=== PATIENT | female | born 1970 | race Caucasian/White ===

== ENCOUNTER → 2022-01-19 | Outpatient (CLI) | payer OTHER | END | disposition home or self-care (01) | LOC: LABPAT 08:44 | PROVIDERS: ATTEND Orthopaedic Surgery | DX: Z01.812 Encounter for preprocedural laboratory examination (principal); Z22.322 Carrier or suspected carrier of Methicillin resistant Staphylococcus aureus; M47.812 Spondylosis without myelopathy or radiculopathy, cervical region; M48.02 Spinal stenosis, cervical region | CPT/HCPCS: 87070 ==

== ENCOUNTER 2022-01-30 06:00 | Observation (INO) | payer OTHER ==
[2022-01-24 18:07] VITALS: BMI 40.7
[~2022-01-30 06:00] MED LIST: ACETAMINOPHEN TAB 500 MG TAB PO PRN; GABAPENTIN 300 MG CAP PO PRN; ONDANSETRON 4 MG/2 ML VIAL IVP PRN; TRANEXAMIC ACID IN NACL,ISO-OS 1,000 MG in SALINE 1 100ML.BAG IVPB PRN
[2022-01-30] MEDS ORDERED: LIDOCAINE 1% (10MG/ML) FOR IV START INTRADERMA PRN (06:14)
[2022-01-30] MEDS: LACTATED RINGERS 1,000 ML IV SCH (06:22)
[2022-01-30] MEDS ORDERED: LACTATED RINGERS 1,000 ML IV ONE ×3 (06:22→11:05)
--- NOTE | 2022-01-30 06:33 | P.HPOR ---
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 Location posterior diffuse Activity Modification Yes, she has attempted lifestyle and activity modifications w/o relief Hand Dominance right DOI: 03/2021 DOS: None TREATMENTS COMPLETED: 6 weeks of PT completed? Date of last PT: 11/2021 Yes (completed 1 month ago) How many sessions? 16 Did it help? No Physician directed home exercise completed? yes (daily), without improvements. Medications yes List: Robaxin without relief, NSAIDs (motrin, Aleve) no help; Medrol dolores (mild relief, transient); Gabapentin made her "loopy" Alternative interventions Chiropractic: yes , without improvements. Massage therapy: No Brace: No Pt has participated in cervical traction w/o relief Pt has participated in Expressive CBT writing program w/o relief Injections No RFA: No SUBJECTIVE: Patient returns to the office for a pre-operative review of the planned C4-C6 ACDF. Since the time of the last appointment the patient reports that she has seen no changes to her symptoms. Furthermore she denies any improvements with all conservative modalities trialed thus far and is ready to proceed with the planned procedure. Patient notes that she has seen that her symptoms are continuing to give her significant issues and she is unable to complete many daily activities due to this. Otherwise the patient continues to deny any bladder or bowel retention/incontinence, no perineal numbness/tingling, and ambulates independently. HPI: Patient last returned to the office on 12/21/2021 for a recheck of her cervical spine. Since the time of the last appointment the patient reports that she has seen no improvements to her symptoms. She did complete her course of PT in 11/2021 , not finding any relief with this. Additionally she has continued with the physician recommended HEP daily without relief as well. Overall she denies any lasting improvements from the conservative modalities trialed thus far. Patient notes continued cervical pain radiating through the C5-C6 distribution on the right upper extremity. This is continuing to impede with her daily functions and she has great difficulty completing tasks due to this. Patient does also report sleep disturbances. She feels that she is ready to proceed with discussing operative intervention. Patient continues to deny any bladder or bowel retention/incontinence, no perineal numbness/tingling, and ambulates independently. Ms. Perea last presented to the office on 10/28/2020 for an evaluation of her cervical spine. Patient reports her symptoms were onset following a FFS in 03/2021 after a syncopal episode. She denies having any acute injury immediately following this event but does report having increasing cervical pain since. Regarding her symptoms, she describes her pain as an aching and burning that becomes sharp with any flexion or twisting of the neck. In addition to the cervical pain she does report having diffuse numbness/tingling into the right upper extremity and hand. Overall, similarly to her cervical symptoms, her radiculopathic symptomology is exacerbated with movement and weightlifting. Due to this she does have sleep disturbances as well as an increasing loss in daily functionality. As for treatment, the patient reports having trialed PT and a physician recommended home exercise program for greater than 3 months with no improvements. Additionally, she does take Robaxin without any relief. Lastly, she has found no improvements with doing chiropractics. Overall she denies any notable improvements to her progressive symptoms with conservative modalities. Otherwise she denies any bladder or bowel retention/incontinence, no perineal numbness/tingling, and ambulates independently. The patients' past social, medical, family, surgical history, as well as review of systems, have been reviewed. Please refer to the Neurosurgery History and Physical form that has been scanned in to our electronic medical record system. 14 points review of systems completed and as stated in HPI, all other systems reviewed are negative. Social History: Reviewed, see appropriate section of the chart for details. P3 Social History: Smoking: never a smoker P3 Alcohol: occasional alcohol P3 Family History: Reviewed, see appropriate section of the chart for details. P2 Past Medical History: Reviewed, see appropriate section of the chart for details. [id number] Medications: Rx: cetirizine 10 mg tablet Ref: 0 Rx: famotidine 20 mg tablet Ref: 0 Rx: hydroCHLOROthiazide 12.5 mg tablet Ref: 0 Rx: Jardiance 25 mg tablet Ref: 0 Rx: Robaxin Ref: 0 PHYSICAL EXAMINATION: General: Awake, alert, appropriate for age, in no acute distress. HEENT: No unusual neck masses around region of lateral neck triangle, thyroid, supraclavicular groove Heart: Regular rate and rhythm, normal S1, S2 and no murmur/gallop. Lungs: Clear to auscultation bilaterally with no use of accessory muscles. Extremities: Skin warm and dry without acute lesions, coloration, temperature, skin intact, no tenderness or erythema Integument: Hairy patches: Absent Dorsal skin dimples: Absent Cafe au lait spots: Absent Surgical incisions: No Palpation: Please see Pain drawing on Intake sheet for further detail. Midline spinal tenderness: Yes, C5-C6 Paralumbar tenderness: No E6 Parathoracic tenderness: No E6 Buttocks tenderness: No E6 Special findings: No POSTURAL and MUSCULO-SKELETAL EVALUATION: Coronal Balance: NEUTRAL Recumbent testing: Patient is able to lay flat on back Sagittal Balance: NEUTRAL Shoulder Profile: LEVEL Pelvic Girdle: LEVEL Neck ROM: RESTRICTED WITH PAIN Lumbar ROM: UNRESTRICTED Shoulder ROM: Symmetrical Hip ROM: Symmetrical Knee ROM: Symmetrical Hands: Normal appearance, symmetrical Feet: Normal appearance, Symmetrical VASCULAR STATUS : LEFT RIGHT Wrist Pulses INTACT INTACT Pedal Pulses (Dors. pedis & post.tibialis) INTACT INTACT Color NORMAL NORMAL Edema Absent Absent NEUROLOGIC EXAMINATION: Mental Status:Awake and alert, fully oriented, with normal attention, concentration and memory, and fluent, appropriate speech. Cranial Nerves: I: Olfactory not tested. II: Visual acuity normal, no visual field deficit noted with confrontation. III,IV: Normal pupillary reflexes & intact extraocular movements without nystagmus. V,: Intact symmetrical facial sensation. VII: Intact symmetrical facial motor movement VIII: Hearing intact. IX,X: Intact gag, swallow, & normal voice. XI: Sternocleidomastoid, trapezius function intact. XII: Tongue midline with normal movements. L'hermitte's Sign: Negative / absent Spurling'Sign: Absent bilaterally. Cubital percussion test: Absent bilaterally. Palmer-Tinel sign - Carpal region: Absent bilaterally. Straight Leg Raising: Absent bilaterally. Crossed straight leg raise: negative O8 MOTOR EXAM (0-5/5, N/T) STRENGTH RIGHT LEFT Shoulder Abd (not part of the ELIZABETH score) 5 5 Elbow Flexors 4+ 5 Elbow Extensor 5 5 Wrist Dorsiflexors 4 5 Finger Abductor 5 5 Architectural Superintendent 4 4+ Hip Flexor (Not part of ELIZABETH Motor score) 5 5 Knee Flexor 5 5 Knee Extensor 5 5 Ankle dorsiflexor 5 5 Ankle plantarflexion 5 5 Extensor hallucis 5 5 REFLEXES(0-4/2, NT) RIGHT LEFT Upper Extremities 2 2 Lower Extremities 2 2 Pathological Reflexes RIGHT LEFT Palmer's Present Present Clonus Absent Absent Babinski Absent Absent # Indicates mechanical impairment Muscle appearance: Symmetrical, without signs of atrophy or dystrophy. Sensory system (0-4, N/T) Test type RU GIOVANNY RL LL Joint-Position 2 2 2 2 Vibration 2 2 2 2 Pain & LT sense 2 2 2 2 Dermatomal Deficit: C5-C6 C6 None None Gait and Functional Evaluation: Ambulatory aids: Independent Romberg's test: Intact bilaterally Toe heel walk / heel-toe walk intact while maintaining satisfactory balance? yes Squatting/straightening w/o assistance to a min of 60 degree knee flexion? yes Single leg stance: intact Trendelenburg sign negative bilaterally Hand and finger dexterity intact bilaterally? No, worse on the right side Disdiadochokinesis examination negative bilaterally? yes RADIOGRAPHIC STUDIES: XRay taken on 10/28/21 of Cervical Spine: This is reviewed in office this demonstrates overall well-maintained alignment. There is spondylosis noted C5-C6 disc degeneration and collapse this anterior osteophytic changes. There is facet arthrosis as well noted. No other fracture noted simple cervical C1 2 joints appear stable. MRI scan from08/27/2021 of Cervical Spine: this is reviewed and demonstrates multilevel spondylotic changes with severe disc desiccation height loss as well as kyphotic deformity centered around C4 5 and C5 6.there are disc herniations at these levels as well causing moderate to severe stenosis at C5-C6 and moderate stenosis at C4-C5 there appears to be beginning changes of myelomalacia at C5-C6 with cord signal uptake at C5-C6. There is reversal of the normal cervical lordosis secondary to these levels. Occipital cervical and C1 2 joints appear stable. There are no other lesions or fractures noted. IMPRESSION AND PLAN: It was my pleasure to have seen and examined Amalia. I reviewed the patient's clinical syndrome, physical findings, and imaging studies during the appointment today. It is my impression that the patient has a diagnosis of. 1. C4 to C6 spondylosis with stenosis, moderate to severe 2. myelomalacia C5-C6 3. right upper extremity radiculopathy 4. Right upper extremity weakness .DX:Diagnosis: Cervical spondylosis : ICD10 = M47.812 / ICD9 = 721.0 / SNOMED = 682528276 .DX:Diagnosis: Myelomalacia : ICD10 = G95.89 / ICD9 = 336.8 / SNOMED = 35744219 .DX:Diagnosis: Weakness of arm : ICD10 = G83.20 / ICD9 = 344.40 / SNOMED = 866523381 I outlined the natural course history without intervention and various interventional options. Based on my findings I suggest the following course of action: 1. I discussed treatment options with the patient, including operative and non- operative options, and they have elected to proceed with the following surgical procedure: C4-C6 ACDF (31818, [id number], [id number], [id number]) The indications, risks, benefits, and alternatives to surgery were discussed w ith the patient at length. Specifically (but not limited to) the risks of infection, stiffness, recurrence of symptoms, need for revision surgery, local numbness, neurovascular injury, and blood clots were discussed. The patient's questions were answered. The decision to proceed was made. Consent will be obtained for the procedure. 2. Spine Surgery Risk Review Amalia Perea is presenting for evaluation of cervical. It was my pleasure to have seen and examined Amalia Perea. In our visit today we have had a chance to go over subjective complaints, physical examination findings and treatments including the natural course history without intervention and various interventional options. The patients imaging demonstrates XRay taken on 10/28/21 of Cervical Spine:This is reviewed in office this demonstrates overall well-maintained alignment. There is spondylosis noted C5-C6 disc degeneration and collapse this anterior osteophytic changes. There is facet arthrosis as well noted. No other fracture noted simple cervical C1 2 joints appear stable. MRI scan from08/27/2021 of Lumbar Spine:this is reviewed and demonstrates multilevel spondylotic changes with severe disc desiccation height loss as well as kyphotic deformity centered around C4 5 and C5 6.there are disc herniations at these levels as well causing moderate to severe stenosis at C5-C6 and moderate stenosis at C4-C5 there appears to be beginning changes of myelomalacia at C5-C6 with cord signal uptake at C5-C6. There is reversal of the normal cervical lordosis secondary to these levels. Occipital cervical and C1 2 joints appear stable. There are no other lesions or fractures noted. On physical exam, Amalia Perea demonstrates significantly restricted cervical ROM with bilateral upper extremity radiculopathy and weakness. Patient does also have C5-C6 dermatomal deficits on the right upper extremity and C6 on the left side. I have explained to the patient that as their condition progresses it will cause further neurological deficits and eventual paralysis. Based on the patients imaging, physical exam, and the rapid progression and disabling nature of their symptoms, at this time I recommend surgery in the form or a: C4-C6 ACDF. I discussed the risk and benefits of this procedure at length with Amalia Perea. The patient agreed to considered pursuing the procedure abovementioned. Prior to surgery, she should follow up with her PCP (Cardio, ID, IM etc) for clearance. Questions were invited and answered, and the patient wishes to proceed as outlined below. Currently, I am recommendin. C4-C6 ACDF 2.Follow up with PCP for surgical clearance 3.Review of surgical risks and benefits as well as an educational packet on the proposed surgical procedure. Risks: All surgical procedures come with inherent risks, including those related to positioning, anesthesia, intraoperative findings, and postoperative complications. It is important to understand that surgery does not come with any guarantee of a successful outcome as complications and adverse events are always possible. The patient was given a handout in office today discussing the surgical procedure and risks associated with the intervention, both of which were discussed with the patient. These risks include but are not limited to the following: * Experiencing same, different or even worse symptoms in back, neck, arms, or legs compared to before surgery. Requiring further surgery or other forms of treatment presently or at some time in the future at same or other levels of the intended spine surgery. On an extreme but fortunately relatively rare basis severe complication such as blindness, stroke, heart attack, temporary and/or permanent nerve injury, paralysis, coma, or may occur, sometimes without known explanation. Surgical complications may include but are not limited to risk of infection, fluid accumulation in the surgical dissection site, including a seroma or hematoma, that requires additional surgery, wound drainage, bleeding, new numbness or weakness, vision changes/loss, spinal fluid leakage, non-healing and/or infected incision, headaches, difficulty or inability to swallow, hoarseness, hemopneumothorax, pneumothorax, impotence, retrograde ejaculation, vaginal dryness; injury to nerves, spinal cord, blood vessels, lymphatics or other vital organs (i.e., bowel injury, injury to the great vessels); heterotopic bone formation; complications related to the hardware such as screws, rods, cages including misplaced hardware, device failure, instrumentation at the wrong spine level, hardware fracture/breakage, or hardware loosening; vertebral failure of the spinal column above or below the newly placed hardware; retained surgical instrumentations or devices and the need for further surgery. * Medical risks of the planned spine surgery include but are not limited to generalized Infections to the whole body or local areas outside of the surgical site (sepsis), heart attack, bleeding, anaphylaxis, meningitis, seizure, epilepsy, hearing loss, burn barrientos, laceration of the head or other areas of the body, bruising, hypersensitivity of the skin, bladder over distension; allergic reaction; shoulder injury related to positioning; fat, blood and air clots to other areas of the body like heart, lungs, brain; failure of internal organs such as lungs, kidneys, liver and excessive bleeding. If blood transfusions are necessary, note that transfusions may cause intolerance reactions such as anaphylaxis or other complex reactions. Despite best efforts, the results of spine surgery might not heal in terms of bone, soft tissues such as skin, fascia, ligaments, and joints. Additionally, in order to achieve best possible results, spine surgery may be carried out beyond the initially planned levels and involve decompression, fusion including insertion of hardware at levels other than the original intended area of surgical interest change some portions of the procedure in order to ensure the best possible outcomes. With spine surgery and spinal fusion, there are different off label uses of instrumentation (devices, implants and hardware) as well as biological substances (bone morphogenic proteins, demineralized bone matrix) as well as using extra bone from allograft sources (i.e. cadaver bone) or autograft (iliac crest bone, ribs, or the spine itself). The patient has been given information about these practices and their inherent risks and benefits. [facility] is an educational center that serves as a training facility for neurosurgical and orthopedic PROFILE GR[employer]ER and Nursing students. Physician assistants are medically trained surgical providers who function in the outpatient, inpatient, and operating room setting under the direct supervision of the attending surgeon. [facility] has multiple operating rooms with single and overlapping rooms running daily. They currently function under the required guidelines as produced by the [facility] with regards to the overlapping rooms and will continue to comply with changes to this policy as they occur. The requirements include and are complied with as follows: (1) the critical portions of the overlapping rooms will not occur at the same time, (2) the attending physician will be physically present during the critical portions of the procedure and immediately available during the entire case, and (3) a back-up attending is designated should the primary attending not be immediately available. The patient has had a chance to review all the listed information, has been given print outs detailing this information, and has had all his/her questions answered to their satisfaction. It was my pleasure to have seen and examined Amalia Perea. In our visit today we have had a chance to go over my understanding of our patient's current condition, the natural course history without intervention and various interventional options. Questions were invited and answered, and the patient wishes to proceed as outlined above. I have seen and examined the patient for 25 minutes and we have spent more than 50% of the time in repeat and detailed counseling about the patient's condition, its natural course history with out and as much as can be predicted with surgery and re-review of various surgical treatment options. In conclusion, Amalia Perea requested we proceed with the above suggested surgery and are willing to accept risks and limitations of the suggested surgery as nature of the disease process and our best attempts at treatment for the condition. Thank you again for allowing us to be part of your patient's care. Please don't hesitate to contact me if you have any further questions. Signed and authenticated by: Pio Esteban DO [facility] Complex and Minimally Invasive Spine Surgery [address] [facility], [address] [address] Past Medical History Past Medical History: Asthma, Diabetes Mellitus, GERD/Reflux, Hypertension, Osteoarthritis (OA), Skin Disorder Additional Past Medical History / Comment(s): Thalassemia. Hx Hives. Hx kidney stones. Varicose veins. History of Any Multi-Drug Resistant Organisms: None Reported Past Surgical History: Adenoidectomy, Section, Tonsillectomy, Tubal Ligation, Uterine Ablation Additional Past Surgical History / Comment(s): Section X2, nose surgery. Past Anesthesia/Blood Transfusion Reactions: No Reported Reaction Additional Past Anesthesia/Blood Transfusion Reaction / Comment(s): Mother slow to wake up. Past Psychological History: Anxiety, Depression Smoking Status: Former smoker, Light tobacco smoker Past Alcohol Use History: Occasional Additional Past Alcohol Use History / Comment(s): Quit smoking many yrs ago, smoked socially on and off. Past Drug Use History: Marijuana Additional Drug Use History / Comment(s): Marijuana occasionally. - Past Family History Father Family Medical History: Cancer Medications and Allergies Home Medications Medication Instructions Recorded Confirmed Type Albuterol Nebulized [Ventolin 0.083 mg INHALATION DIRECTED PRN 01/24/22 01/30/22 History Nebulized] Cetirizine HCl [Zyrtec] 10 mg PO QAM 01/24/22 01/24/22 History Empagliflozin [Jardiance] 25 mg PO QAM 01/24/22 01/24/22 History Famotidine [Pepcid] 20 mg PO QAM 01/24/22 01/30/22 History Hydrochlorothiazide 12.5 mg PO QAM 01/24/22 01/24/22 History [hydroCHLOROthiazide] L.acidoph,Paracasei, B.lactis 1 each PO DAILY 01/24/22 01/24/22 History [Probiotic] Zinc 50 mg PO DAILY 01/24/22 01/24/22 History methocarbamoL [Robaxin] 750 mg PO BID PRN 01/24/22 01/24/22 History Allergies Allergy/AdvReac Type Severity Reaction Status Date / Time No Known Allergies Allergy Verified 01/24/22 17:40 Physical Examination Osteopathic Statement: *. No significant issues noted on an osteopathic structural exam other than those noted in the History and Physical/Consult.
[2022-01-30 07:04] LABS: Glucose,Whole Blood 164 mg/dL (75-99)
--- NOTE | 2022-01-30 07:05 | P.PN ---
Progress Note - Text Progress Note Date: 01/30/22 History and Physical UPDATE I have seen and examined the patient and reviewed the history and physical. There appear to be no significant changes in the patient's current medical status as outlined in the current History and Physical.
[2022-01-30] MEDS ORDERED: KETAMINE 10 MG/ML 20 ML VIAL ONE (07:25)
[2022-01-30] MEDS ORDERED: MIDAZOLAM 2 MG/2 ML VIAL ONE (07:25)
[2022-01-30] MEDS ORDERED: LIDOCAINE 2% INJ 20 MG/ML (2 ML VIAL) ONE (07:25)
[2022-01-30] MEDS ORDERED: DEXAMETHASONE SOD PHOSPHATE 10 MG/ML 1 ML VIAL ONE (07:25)
[2022-01-30] MEDS ORDERED: SUCCINYLCHOLINE CHLORIDE 100 MG/5 ML SYR IV ONE (07:25)
[2022-01-30] MEDS ORDERED: fentaNYL (PF) 50 MCG/ML 2 ML AMP ONE (07:25)
[2022-01-30] MEDS ORDERED: TRANEXAMIC ACID IN NACL,ISO-OS 1,000 MG/100 ML BAG ONE (07:25)
[2022-01-30] MEDS ORDERED: HYDROmorphone (PF) 1 MG/ML ONE (07:25)
[2022-01-30] MEDS ORDERED: PROPOFOL 10 MG/ML 20 ML VIAL IV ONE (07:25)
[2022-01-30] MEDS ORDERED: THROMBIN (BOVINE) 5,000 UNIT VIAL TOPICAL ONE (07:30)
[2022-01-30] MEDS ORDERED: GELATIN SPONGE,ABSORB (LARGE) 1 EACH SPONGE TOPICAL ONE (07:30)
[2022-01-30] MEDS ORDERED: ceFAZolin 1,000 MG in SODIUM CHLORIDE 0.9% 1,000 ML IRRIGATION ONE (08:22)
--- NOTE | 2022-01-30 10:36 | FL ---
EXAMINATION TYPE: FL guidance operating room, XR cervical spine limited DATE OF EXAM: 01/30/2022 CLINICAL HISTORY: Neck pain. TECHNIQUE: Fluoroscopy. Limited cervical spine intraoperative x-rays. COMPARISON: None. FINDINGS: Fluoroscopic guidance was provided during cervical spine fusion procedure performed by Dr. Esteban. A total of 28 seconds of fluoroscopic time was utilized during the procedure and 5 spot images was acquired. Intraoperative images obtained show placement of anterior fusion plate and metallic disc material at C4-C6 levels with satisfactory alignment seen on intraoperative images obtained. IMPRESSION: As Above.
[2022-01-30] MEDS ORDERED: HYDROmorphone 0.5 MG/0.5 ML SYRINGE IVP PRN (10:47)
[2022-01-30] MEDS ORDERED: SENNOSIDES-DOCUSATE SODIUM 1 EACH TAB PO PRN (10:47)
[2022-01-30] MEDS ORDERED: HYDROcodone/APAP 5-325MG 1 EACH TAB PO PRN (10:47)
[2022-01-30] MEDS ORDERED: CYCLOBENZAPRINE 5 MG TAB PO PRN (10:47)
[2022-01-30] MEDS ORDERED: HYDROmorphone 1 MG/ML 1 ML SYRINGE IVP PRN (10:47)
[2022-01-30] MEDS ORDERED: IV FLUID CONTINUATION 200 ML IV ONE (10:48)
[2022-01-30] MEDS: HYDROmorphone 0.5 MG/0.5 ML SYRINGE IVP PRN ×3 (11:01→11:14)
[2022-01-30] MEDS ORDERED: ONDANSETRON 4 MG/2 ML VIAL IVP ONE (11:15)
[2022-01-30] MEDS ORDERED: fentaNYL (PF) 50 MCG/ML 2 ML AMP IVP ONE ×3 (11:25→12:00)
[2022-01-30] MEDS: ACETAMINOPHEN TAB 325 MG TAB PO SCH ×3 (13:12→23:50)
[2022-01-30] MEDS: ONDANSETRON 4 MG/2 ML VIAL IVP PRN ×2 (14:48→21:44)
[2022-01-30 16:33] LABS: Glucose,Whole Blood 195 mg/dL (75-99)
--- NOTE | 2022-01-30 16:59 | P.PN ---
Progress Note - Text Progress Note Date: 01/30/22 Brief Post op Note Pt s/e in her room. She is having some N/V at this time, but meds ordered and she is feeling better. She has some soreness but her voice is normal, she is able to swallow and take in fluids w/o issues. She states no new numbness/tingling. She states no other issues at this time. C collar in place and well fitting. drian in place and minimal output. VSS at this time. She is moving all 4 ext with good strength. No pathological reflexes and good sensation. We will continue to recover her and make her comfortable. Plan on DC home tomorrow.
--- NOTE | 2022-01-30 17:14 | P.OP ---
Date of Procedure: 01/30/22 Preoperative Diagnosis: 1. C4 to C6 spondylosis with stenosis, moderate to severe 2. myelomalacia C5-C6 3. right upper extremity radiculopathy 4. Right upper extremity weakness .DX:Diagnosis: Cervical spondylosis : ICD10 = M47.812 / ICD9 = 721.0 / SNOMED = 810928638 .DX:Diagnosis: Myelomalacia : ICD10 = G95.89 / ICD9 = 336.8 / SNOMED = 78631995 .DX:Diagnosis: Weakness of arm : ICD10 = G83.20 / ICD9 = 344.40 / SNOMED = 957046644 Postoperative Diagnosis: 1. C4 to C6 spondylosis with stenosis, moderate to severe 2. myelomalacia C5-C6 3. right upper extremity radiculopathy 4. Right upper extremity weakness .DX:Diagnosis: Cervical spondylosis : ICD10 = M47.812 / ICD9 = 721.0 / SNOMED = 985116103 .DX:Diagnosis: Myelomalacia : ICD10 = G95.89 / ICD9 = 336.8 / SNOMED = 64557549 .DX:Diagnosis: Weakness of arm : ICD10 = G83.20 / ICD9 = 344.40 / SNOMED = 126273644 Procedure(s) Performed: 1. Anterior Right sided Jamison Hartman approach to cervical spine 2. C4-5 anterior interbody arthrodesis (18966) 3. C5-6 anterior interbody arthrodesis (28990) 4. Insertion of biomechanical device C4-5 and C5-6 ([id number]) 5. Application of separate nonintegrated anterior plate C4-6 (96170) 6. Use of intraoperative Neuromonitoring 7. Interpretation of intraoperative flouroscopy <1 hr (12946) Implants: -Vielka Shamokin cages x2 8 mm and 9 mm 8 deg lordotic -Healy Sheridan plate 46 mm -Magnatos -Autograft Anesthesia: GETA Surgeon: Pio Esteban Apron Operator #1: Abdiel Hui (Was present and assisted in all parts of the case from positioning, to decompression, hardware placement, closure and dressing placement. ) Estimated Blood Loss (ml): 25 IV fluids (ml): 1,500 Urine output (ml): 300 Pathology: none sent Condition: stable Disposition: PACU Indications for Procedure: Amalia Perea is presenting for evaluation of cervical. It was my pleasure to have seen and examined Amalia Perea. In our visit today we have had a chance to go over subjective complaints, physical examination findings and treatments including the natural course history without intervention and various interventional options. The patients imaging demonstrates XRay taken on 10/28/21 of Cervical Spine:This is reviewed in office this demonstrates overall well-maintained alignment. There is spondylosis noted C5-C6 disc degeneration and collapse this anterior osteophytic changes. There is facet arthrosis as well noted. No other fracture noted simple cervical C1 2 joints appear stable. MRI scan from08/27/2021 of Lumbar Spine:this is reviewed and demonstrates multilevel spondylotic changes with severe disc desiccation height loss as well as kyphotic deformity centered around C4 5 and C5 6.there are disc herniations at these levels as well causing moderate to severe stenosis at C5-C6 and moderate stenosis at C4-C5 there appears to be beginning changes of myelomalacia at C5-C6 with cord signal uptake at C5-C6. There is reversal of the normal cervical lordosis secondary to these levels. Occipital cervical and C1 2 joints appear stable. There are no other lesions or fractures noted. On physical exam, Amalia Perea demonstrates significantly restricted cervical ROM with bilateral upper extremity radiculopathy and weakness. Patient does also have C5-C6 dermatomal deficits on the right upper extremity and C6 on the left side. I have explained to the patient that as their condition progresses it will cause further neurological deficits and eventual paralysis. Based on the patients imaging, physical exam, and the rapid progression and disabling nature of their symptoms, at this time I recommend surgery in the form or a: C4-C6 ACDF. I discussed the risk and benefits of this procedure at length with Amalia Perea. The patient agreed to considered pursuing the procedure abovementioned. Prior to surgery, she should follow up with her PCP (Cardio, ID, IM etc) for clearance. Questions were invited and answered, and the patient wishes to proceed as outlined below. Currently, I am recommendin. C4-C6 ACDF Description of Procedure: The patient was seen and examined in the preoperative area. All preoperative protocols were followed. Informed consent was obtained risks and benefits of th e procedure were discussed at length. Risks including bleeding infection damage to the surrounding tissue and risk of reoperation were discussed with the patient. Risk of anesthesia up to and including was a discussed with the patient. These are outlined in the risk review. They were willing to accept these risks and all of the risks of surgery. The patient was given a weight- based dose of antibiotics in the form of Ancef 2 g. The patient was seen and evaluated by the anesthesia team who deemed them fit for surgery. The site was marked, the patient was willing to proceed with the procedure. The patient was transferred to the operative suite by the Department of anesthesia. They were then drifted off to sleep by the department anesthesia and anesthesia type was performed. The patient tolerated this well. Kearns catheter was placed by nursing staff, atraumatically. Once confirmation of lines and ventilation the patient was transferred to a supine flat top Vipul table very carefully. Shoulder roll was placed. Shoulders were gently taped to the table. Head was placed on a jelly donut.. All bony prominences including wrists, elbows, axilla, chest, hips, and thighs, and feet were padded very well. Special attention was paid to the genitalia and these were padded accordingly. SCDs were placed on bilateral lower extremities and were connected. Arms were well padded and placed well-padded at her sides tucked thumbs-up.. Once in position, again we confirmed good ventilation capabilities and that lines were running appropriately. The patient's anterior cervical spine was then exposed. 1010s were placed outlining the incision site. Standard alcohol was used to clean the incision site and allowed to dry. C-arm was used to biomark the patient and confirm level for incision which was marked with a skin marker. Operative briefing was performed with all teams and everyone in agreement to proceed. The patient was then prepped and draped in a normal sterile fashion. Timeout was then performed and all parties were in agreement with the procedure to be performed. Transverse skin incision was made over the previously bio marked area anterior spine on the right in side Jamison-Natarajan approach was taken. Blunt dissection taken down to the platysma which was identified and opened longitudinally with its fibers. This revealed the sternocleidomastoid and strap muscles and all omohyoid muscle. Blunt dissection was taken down in this interval until the anterior cervical fascia was identified once it was identified a large osteophyte was identified which is presumed to be C5-C6 retractor was placed and a lateral fluoroscopic image with a blunt instrument confirm the C5-C6 interspace. This was then marked. Retractor was then placed and we performed subperiosteal dissection of bilateral longissimus muscles from C4 through C6. This allowed for placement of the retractor deep to the longissimus muscles and was retracted. We then secured the retractor to the table. Under lateral fluoroscopic imaging we then placed Humphreys pins in the C5 and C6 respectively and a distractor was placed over them and carefully distracted interspace. Lizzeth rongeur was used to remove anterior osteophyte from this area as well as Leksell rongeur to flatten the anterior cervical spine due to the large osteophyte that was formed at this disc space. We then performed total discectomy at C5-C6 using Lizzeth Kemal 20 straight and up-biting curettes 3 Kerrisons. Once the PLL was encountered and identified was then released with a 6-0 up-biting curette we used a high-speed bur to bur the endplates and any posterior osteophyte of C5 as well as C6 as well as flatten the endplates and create good bony bleeding surfaces. Kerrison rongeurs used to perform bilateral foraminotomies. We thoroughly irrigated the disc space and perform meticulous hemostasis. We then placed sizers under lateral fluoroscopic guidance followed by the sort selected cage. The cage was packed with magna tests and autograft and impacted into position under lateral fluoroscopic guidance. Once in good position the publications editor was removed the cage was tested and was stable. Di stractor was removed and Humphreys pin was removed from C6 we then carefully removed our retractors over the C5-C6 disc . Under lateral imaging we then placed Humphreys pin in the C4 carefully and distractor was placed and then carefully distracted C4-C5 interspace which allowed for reduction of the C4-C5 listhesis. We then performed total discectomy at C4 C5 using Lizzeth Kemal 20 upbiter and straight curettes as well as 3 Kerrison rongeur. High-speed bur was used to flatten the endplate of C4 as well as a large anterior osteophyte and posterior osteophyte sloughed us to identify the PLL with PLL was identified and was resected using 6 up-biting curet and Kerrison rongeurs bilateral foraminotomies using Kerrison rongeurs. Then thoroughly irrigated the disc space and perform meticulous hemostasis the endplates were burred to allow for good bleeding endplates were then sized under lateral fluoroscopy a cage and then placed a 9 mm cagethat was packed with autograft and MagnatOs. [employer] Worker was removed the cage was tested and was stable. We then removed all distractor and Humphreys pins bone wax was placed in the voids of the Humphreys pins at all levels. We then sized the plate under lateral fluoroscopy and selected it once was selected and lordosis to was placed we then pinned the place and into position. We then placed screws into C6 bilaterally and locking screws and the position we then drilled and placed screws in the C5 and C4 respectively. All screws were locked in position and had good purchase. We then removed all distractors and retractors and took final fluoroscopic imaging in AP and lateral which confirmed good placement of the cage as well as plate and good decompression. We then thoroughly irrigated with normal sterile saline. The midline structures were inspected and there is no injury. We then placed Surgicel deep within the wound and place a drain deep within the wound is well and secured into position without health informatics advisor closure first the platysmal layer with 3-0 Vicryl followed by the subcu layer with 3-0 Vicryl in the subcuticular layer with 40 strata fix. Wound edges approximated very well and was then cleaned and ex-glue was placed onto it once the glue was dry a operative foam dressing was placed along with a drain sponge and Tegaderm. Drain was connected and had good suction. Patient was placed in a soft collar. The patient was transferred back to their hospital bed atraumatically. Drain continued to hold suction and were in good position. Patient was then awakened and extubated by the department of anesthesia having tolerated the procedure very well with no complications. They were transferred to the postoperative care unit in stable condition.
--- NOTE | 2022-01-30 21:01 | P.CONS ---
History of Present Illness - Reason for Consult Consult date: 01/30/22 - Chief Complaint Medical management - History of Present Illness 51-year-old woman with a history of hypertension, diabetes, ALLERGIC rhinitis presented for elective C4 through 6 laminectomy and spinal fusion. Medicine was consulted by orthopedic surgery service for medical management. Patient has no complaints at this time. Her pain is well controlled, surgery went well. Denies fevers, chills, nausea, vomiting, chest pain, palpitations, syncopal, presyncopal be, cough, dyspnea, abdominal pain, constipation, diarrhea, dysuria, dyschezia, Parul/weakness of extremities. Upon my evaluation, patient was afebrile, 154/77, heart rate 64, 97% on 2 L nasal cannula. Labs are reviewed, glucose is elevated at 195. Cervical spine x-ray was reviewed, placement of anterior fusion plate metallic disc material at C4 through 6 levels with satisfactory alignment. All Systems reviewed and pertinent positives and negatives noted in HPI, all other symptoms are negative Gen: awake, alert HEENT: normocephalic, atraumatic, good hearing acuity, moist mucous membranes Resp: good air exchange, breathing comfortably with no accessory muscle use CVS: good distal perfusion x 4, GI: soft, NTTP, ND : no SPT, no CVAT, devries catheter is present MSK: no pitting edema, no clubbing Neuro: non-focal, moving all extremities Psych: cooperative, euthymic mood Labs and imaging as above Assessment/plan: Hypertension Diabetes type 2 ALLERGIC rhinitis -Resume home medications except for diabetes medication -Sliding-scale insulin -Q before meals/at bedtime sugar checks Spinal fusion -Management per primary team Patient is full code DVT prophylaxis per primary team Thank you for this consult. A member of our team is available 02/04, should any questions or concerns arise, please reach out via perfect serve. Past Medical History Past Medical History: Asthma, Diabetes Mellitus, GERD/Reflux, Hypertension, Osteoarthritis (OA), Skin Disorder Additional Past Medical History / Comment(s): Thalassemia. Hx Hives. Hx kidney stones. Varicose veins. History of Any Multi-Drug Resistant Organisms: None Reported Past Surgical History: Adenoidectomy, Section, Tonsillectomy, Tubal Ligation, Uterine Ablation Additional Past Surgical History / Comment(s): Section X2, nose surgery. Past Anesthesia/Blood Transfusion Reactions: No Reported Reaction Additional Past Anesthesia/Blood Transfusion Reaction / Comm: Mother slow to wake up. Past Psychological History: Anxiety, Depression Smoking Status: Former smoker, Light tobacco smoker Past Alcohol Use History: Occasional Additional Past Alcohol Use History / Comment(s): Quit smoking many yrs ago, smoked socially on and off. Past Drug Use History: Marijuana Additional Drug Use History / Comment(s): Marijuana occasionally. - Past Family History Father Family Medical History: Cancer Medications and Allergies Home Medications Medication Instructions Recorded Confirmed Type Albuterol Nebulized [Ventolin 0.083 mg INHALATION DIRECTED PRN 01/24/22 01/30/22 History Nebulized] Cetirizine HCl [Zyrtec] 10 mg PO QAM 01/24/22 01/24/22 History Empagliflozin [Jardiance] 25 mg PO QAM 01/24/22 01/24/22 History Famotidine [Pepcid] 20 mg PO QAM 01/24/22 01/30/22 History Hydrochlorothiazide 12.5 mg PO QAM 01/24/22 01/24/22 History [hydroCHLOROthiazide] L.acidoph,Paracasei, B.lactis 1 each PO DAILY 01/24/22 01/24/22 History [Probiotic] Zinc 50 mg PO DAILY 01/24/22 01/24/22 History methocarbamoL [Robaxin] 750 mg PO BID PRN 01/24/22 01/24/22 History Allergies Allergy/AdvReac Type Severity Reaction Status Date / Time No Known Allergies Allergy Verified 01/24/22 17:40 Physical Exam Osteopathic Statement: *. No significant issues noted on an osteopathic structural exam other than those noted in the History and Physical/Consult. Vitals: Vital Signs Temp Pulse Resp BP Pulse Ox 01/30/22 19:40 97.5 F L 64 16 154/77 97 01/30/22 13:59 71 130/79 98 01/30/22 13:44 72 145/82 95 01/30/22 13:29 83 146/83 96 01/30/22 13:14 71 138/81 96 01/30/22 12:59 75 129/79 93 L 01/30/22 12:43 97.5 F L 71 18 145/82 93 L 01/30/22 12:30 73 16 141/84 99 01/30/22 12:15 75 16 141/67 99 01/30/22 12:00 69 16 140/75 98 01/30/22 11:47 70 16 140/70 99 01/30/22 11:32 69 16 143/70 99 01/30/22 11:17 74 16 123/60 99 01/30/22 11:00 70 16 134/67 97 01/30/22 10:48 97.4 F L 74 16 139/64 98 01/30/22 06:36 96.8 F L 66 18 153/70 97 Intake and Output 01/30/22 01/30/22 01/30/22 06:59 14:59 22:59 Intake Total 50 1351 480 Output Total 175 25 Balance 50 1176 455 Intake: IV 50 1351 Oral 480 Output: Drainage 25 Anterior Neck 25 Urine 150 Estimated Blood Loss 25 Other: # Voids 1 # Bowel Movements 1 Weight 113.3 kg 113.3 kg Results Labs: Abnormal Lab Results - Last 24 Hours (Table) 01/30/22 01/30/22 Range/Units 06:53 16:32 POC Glucose (mg/dL) 164 H 195 H (75-99) mg/dL
[2022-01-30] MEDS ORDERED: ALBUTEROL NEBULIZED 2.5 MG/3 ML INHALATION PRN (21:07)
[2022-01-30] MEDS ORDERED: methocarbamoL 750 MG TAB PO PRN (21:07)
[2022-01-30] MEDS: GABAPENTIN 300 MG CAP PO SCH (21:45)
[2022-01-30] MEDS: LORATADINE 10 MG TAB PO SCH (21:47)
[2022-01-30 21:56] LABS: Glucose,Whole Blood 162 mg/dL (75-99)
[2022-01-30] MEDS: INSULIN ASPART (NovoLOG) 100 UNIT/ML VIAL SQ SCH (21:58)
[2022-01-31] MEDS: HYDROcodone/APAP 10-325MG 1 EACH TAB PO PRN ×3 (00:23→10:38)
[2022-01-31] MEDS: ACETAMINOPHEN TAB 325 MG TAB PO SCH ×2 (05:29→11:31)
[2022-01-31] MEDS: LACTATED RINGERS 1,000 ML IV SCH (06:25)
[2022-01-31 07:16] LABS: Glucose,Whole Blood 186 mg/dL (75-99)
[2022-01-31] MEDS: INSULIN ASPART (NovoLOG) 100 UNIT/ML VIAL SQ SCH ×4 (07:26→12:17)
--- NOTE | 2022-01-31 07:28 | P.PN ---
Subjective Progress Note Date: 01/31/22 Principal diagnosis: RUE paresthesia RUE radiculopathy Neck pain Pt s/e. She is doing better this AM. Some pain in neck and throat but otherwise doing well. Denies any f/c/sob/cp at this time. States no MITCHELL, N, V. States she was up and about yesterday w/o issues. Drain in place. Voiding appropriately. Tolerating PO. Objective - Vital Signs Vital signs: Vital Signs Temp 98.3 F 01/31/22 01:40 Pulse 79 01/31/22 01:40 Resp 16 01/31/22 01:40 BP 120/64 01/31/22 01:40 Pulse Ox 97 01/31/22 01:40 FiO2 Intake & Output 01/30/22 01/31/22 01/31/22 18:59 06:59 18:59 Intake Total 1831 830 Output Total 175 3555 Balance 1656 -2725 Weight 113.3 kg Intake: IV 1351 290 Lactated Ringers 1,000 ml 240 @ 20 mls/hr IV .Q24H [facility] Rx#:[id number] ceFAZolin 2 gm In Sodium 50 Chloride 0.9% 50 ml @ 100 mls/hr IVPB ONCE PRN Rx# :[id number] Oral 480 540 Output: Drainage 55 Anterior Neck 55 Urine 150 3500 Estimated Blood Loss 25 Other: Voiding Method Indwelling Catheter # Voids 1 # Bowel Movements 1 - Exam Patient is alert and oriented 3 appears well-nourished well-hydrated is in no acute distress. They do not appear septic. On exam the patient has no tenderness to palpation of her thoracic or lumbar spine. There is no edema or ballottement sign. Lower extremities with [5]/5 strength in all major muscle groups Upper extremities show [5]/5 strength in all major muscle groups. normal postoperative deconditioning no focal deficits [2]/4DTR all UE and LE b/l Patient shows a negative Homans, Palmer's, negative Babinski's negative clonus bilaterally. negative straight leg raise bilaterally. No tensioning signs. Cranial nerves II through XII are grossly intact. There is FROM that is painless of the b/l UE and LE in all major joints [w/o pain]. They are intact to light touch sensation in L2 to S1 nerve distribution. Patient has palpable dorsalis pedis was posterior tibial pulses. Compartments are soft and compressible. dressings clean and dry incision clean and dry drain shows minimal output - Labs Labs: Abnormal Lab Results - Last 24 Hours (Table) 01/30/22 01/30/22 01/31/22 Range/Units 16:32 21:53 07:15 POC Glucose (mg/dL) 195 H 162 H 186 H (75-99) mg/dL Assessment and Plan Assessment: 51-year-old female postoperative day 1 C4 to C6 ACDF Plan: -Appreciate engagement quality consultant and team management. -Activity: Ambulate QID, OOB all meals, up and about, limit lifting bending twisting to less than 5 lbs. Use walker or cane if needed for stability. -Daily PT/OT, increase ambulation strength and balance. -[Brace when up and about, not needed in bed or chair] -Pain control: [Adequate at this time] -Meds: [reviewed] -GI ppx: senna, Miralax -DVT PPX: Early ambulation, TEDs -Hygiene: Shower today. Maintain dressing clean and dry. Meticulous cleaning after BMs away from incision site -Drains: DC today -Encourage IS 10x/hr -Dispo: Home today
[2022-01-31] MEDS: GABAPENTIN 300 MG CAP PO SCH (07:31)
[2022-01-31] MEDS: LORATADINE 10 MG TAB PO SCH (07:32)
--- NOTE | 2022-01-31 07:37 | P.DS ---
Providers Date of admission: 01/30/2022 Expected date of discharge: 01/31/22 Attending physician: Pio Esteban DO Consults: 01/30/22 10:51 Consult Physician Routine Consulting Provider: Hiral Mendoza Consult Reason/Comments: Medical Management s/p c4-c6 ACDF Do you want consulting provider notified?: Yes Primary care physician: Tank Warner DO Hospital Course: Hospital Course: The patient was evaluated preoperatively and found to have the diagnosis of cervical stenosis, cervical spondylosis. They underwent appropriate preoperative care and were willing to undergo the intended procedure. They underwent a successful C4 to C6 ACDF, were recovered appropriately and sent to the floor. While on the floor they worked with physical therapy, occupational therapy and nursing to enhance their recovery experience. Their pain was well controlled through their stay and they were started on appropriate medications, DVT ppx modalities, activity and dietary needs. Daily labs were monitored closely, and transfusions were only used when necessary. Medicine as well as other consulting services have made their input and have helped with our team approach and multidisciplinary care. PT milestones have been met and passed and they have made the recommendation of home for this patient and treating providers agree with this care path. The patient will be discharged home with appropriate medications, instructions and follow-up information and in stable condition. Patient Condition at Discharge: Good Plan - Discharge Summary Discharge Rx Participant: Yes New Discharge Prescriptions: New HYDROcodone/APAP 10-325MG [[place] 10-325] 1 tab PO Q6HR PRN #56 tab PRN Reason: Pain Sennosides/Docusate Sodium [Senna Plus 8.6-50 mg Tablet] 1 each PO DAILY PRN #20 tablet PRN Reason: Constipation cefaDROXiL [Duricef] 500 mg PO Q12HR 5 Days #10 cap Cyclobenzaprine [Flexeril] 5 mg PO TID #90 tablet Gabapentin 300 mg PO TID #90 cap No Action methocarbamoL [Robaxin] 750 mg PO BID PRN PRN Reason: Pain Zinc 50 mg PO DAILY Empagliflozin [Jardiance] 25 mg PO QAM Famotidine [Pepcid] 20 mg PO QAM Cetirizine HCl [Zyrtec] 10 mg PO QAM Albuterol Nebulized [Ventolin Nebulized] 0.083 mg INHALATION DIRECTED PRN PRN Reason: Shortness Of Breath L.acidoph,Paracasei, B.lactis [Probiotic] 1 each PO DAILY Hydrochlorothiazide [hydroCHLOROthiazide] 12.5 mg PO QAM Discharge Medication List Albuterol Nebulized [Ventolin Nebulized] 0.083 mg INHALATION DIRECTED PRN 01/24/22 [History] Cetirizine HCl [Zyrtec] 10 mg PO QAM 01/24/22 [History] Empagliflozin [Jardiance] 25 mg PO QAM 01/24/22 [History] Famotidine [Pepcid] 20 mg PO QAM 01/24/22 [History] Hydrochlorothiazide [hydroCHLOROthiazide] 12.5 mg PO QAM 01/24/22 [History] L.acidoph,Paracasei, B.lactis [Probiotic] 1 each PO DAILY 01/24/22 [History] Zinc 50 mg PO DAILY 01/24/22 [History] methocarbamoL [Robaxin] 750 mg PO BID PRN 01/24/22 [History] Cyclobenzaprine [Flexeril] 5 mg PO TID #90 tablet 01/31/22 [Rx] Gabapentin 300 mg PO TID #90 cap 01/31/22 [Rx] HYDROcodone/APAP 10-325MG [[place] 10-325] 1 tab PO Q6HR PRN #56 tab 01/31/22 [Rx] Sennosides/Docusate Sodium [Senna Plus 8.6-50 mg Tablet] 1 each PO DAILY PRN #20 tablet 01/31/22 [Rx] cefaDROXiL [Duricef] 500 mg PO Q12HR 5 Days #10 cap 01/31/22 [Rx] Follow up Appointment(s)/Referral(s): Tank Warner DO [Primary Care Provider] - 1 Week Pio Esteban DO [Doctor of Osteopathic Medicine] - 1 Week Activity/Diet/Wound Care/Special Instructions: Spine Discharge and Recovery Instructions Date of Surgery: 01/30/2022 Diagnosis: Cervical stenosis, cervical spondylosis Procedure: C4 to C6 ACDF Medications: See medication list All medication refills should be obtained through your primary care doctor or your clinic spine surgeon. Please discuss prescription refills at your follow up appointment. Do not call the hospital for medication refills. Dressing: Leave your dressing in place for a total of 5 days post operatively. Then you may remove your dressing and leave open to air. Keep the area clean and if not able to keep area clean, then cover with sterile gauze and tape. Showering: You may shower 3 days after your procedure allowing soap and water to run over incision. Do not scrub. Do not soak. Blot dry. Follow up: Please confirm a follow up appointment with your surgeon 3 weeks post operatively. Please make an appointment to follow up with your PCP in 1-2 weeks after surgery for evaluation 3 phase, 3-week plan POST OP WEEKS 1-3 1. Lifting/carrying/pushing/pulling limited to less than 5 pounds. 2. Do not sit for longer than 15 minutes at one time. Get up and walk around. Prolonged sitting is NOT advised. If you lay down, see if you can tolerate laying down on you front (belly side) 3. Walk for periods of 15 minutes = 1 mile but no longer; do it multiple times times each day. 4. Ice your low back after activity. POST OP WEEKS 3-6 1. Lifting limited to less than 20 pounds. 2. Do not sit for longer than 30 minutes at a time. Frequently change positions. Use a sit-to stand workstation or take frequent breaks from sitting if you have returned to work. 3. Walk for 30 minutes each day. If possible, do these three or more times a day POST OP WEEKS 6+ At your 6-week appointment we will give you a physical therapy referral to focus on a core stabilization and strengthening program. You should also work on leg & buttock strengthening, hamstring & quadriceps stretching, and continue a low impact aerobic activity program such as swimming, walking, or riding a stationary bicycle. During the initial 6 weeks after your surgery, you are at the highest risk of re-injuring your spine. You should generally avoid BLTs (bending, lifting and twisting combination motions) and follow the above guidelines to reduce the chance of reinjury. You can anticipate post op appointments in our office at approximately 3 weeks and 6 weeks after your surgery. INCISION CARE: If your incision is not draining you do NOT need to cover it with a dressing. Keep your incision clean, dry and intact. In most cases, we apply skin glue, edita or sutures to the incision at the time of surgery. This will be like a crust or have the appearance of a scab and will fall off in time on its own. The stitches or edita need to be removed at 3 weeks post op appointment. You may begin to shower 3 days after surgery (this allows the glue to [place] well). However, please avoid scrubbing the incision site or peeling off any of the skin glue. This will ensure optimal healing of your incision. Also, during this time avoid soaking the incision area in water - this includes swimming pools, hot tubs or baths. No ointments, lotions or oils on the incision until your surgeon allows. Leave edita, sutures or glue in place. Neurological dysfunction that comes on suddenly can also be a sign of a stroke. Below some common symptoms of a stroke are listed: B - balance difficulty such as sudden onset walking or leaning to one side - NEW E - eye problem such as sudden double vision or trouble seeing on one side - NEW F - Facial weakness or numbness on one side - NEW A - Arm or leg weakness or numbness on one side - NEW S - Slurred speech or difficulty with word finding - NEW T - Time is BRAIN! Call 911 as soon as you recognize these symptoms Diet: Consume a regular diet rich in vegetables and lean protein such as chicken or fish. You should consume in a ratio of approximately 20% fats|40% carbohydrates|40%protein. Vegetables, sweet potatoes, brown rice or quinoa are examples of good carbohydrates. Chips, white bread, cookies and sweets/sugar are examples of bad carbohydrates. Limit your bad carbs, go wild with good carbs. "Life's Simple 7" Guidelines as per [place] [employer] These will help you reclaim your life after surgery and salvager helper in your recovery, keeping in mind your restrictions. (1) Get Active. Physical activity can help people lose weight, control high blood pressure and cholesterol, feel emotionally better, and sleep better. (2) Control Cholesterol. Avoid a diet high in saturated fat, trans fat, & cholesterol. Limit whole milk & cream, ice cream, butter, egg yolks, processed meats (like sausage and hot dogs), and fatty meats. Choose healthy foods that are low in saturated fat, trans fat and cholesterol which include: Fruits and vegetables, fiber rich grain products (like whole grain pasta and brown rice), lean meat such as chicken, fish, nuts, seeds, and legumes. (3) Eat Better. Eat small portions. Shop at the grocery with a list and do not stray from it. Tips for a healthy diet include: Limit sodium intake to less than 1500mg daily, avoid prepackaged, processed, and fast foods, choose a diet rich in fruits, vegetables, and whole grain, high fiber foods, and limit saturated & cholesterol in your diet. (4) Manage Blood Pressure. If you have high blood pressure, you should have a cuff at home so that you can check your blood pressure regularly. Be sure you have a good cuff. An arm one is generally better than a wrist one. Bring the cuff to a doctor's appointment to validate that the measurements that your cuff are taking are accurate. Take your blood pressure twice daily when you are sitting down and relaxing. Record the numbers in a log and bring this log with you to your doctors' appointments. (5) Lose Weight if your BMI is above 25. A healthy BMI is between 19-25. To calculate Your BMI, you may use a Standard BMI Calculator on the NIH BMI websit e: <www.nhlbi.nih.gov/guidelines/obesity/BMI/bmicalc.htm>. Weigh oneself daily. If you are overweight, set a goal to lose weight. A pound a week loss if needed is a good target. (6) Reduce Blood Sugar. Limit foods and liquids with "added sugars." (Added sugars include sucrose, fructose, glucose, maltose, dextrose, high fructose corn syrup, corn syrup, concentrated fruit juice and honey). (7) Stop Smoking. If you smoke, quitting smoking is one of the best things that you can do for your health. Smoking increases your risk of heart attack, stroke, and peripheral vascular disease, which is a build-up of plaque in your arteries. Please discard all the cigarettes and lighters in your house. Have a plan for what you will do when you have the urge to smoke. Direct and second-hand smoke shortens your life as well as the lives of your family, friends and others around you. For your health and the health of those around you, please consider quitting! Proper Bending Body Mechanics: Maintain a wide stance with one foot slightly in front of the other. Keep your back straight. Bend utilizing the strength in your hips and knees. Do not bend at the waist. Maintain the lifted object at your waist-level close to your body. Avoid lifting weight that causes immediately pain or pain anywhere in the body afterwards. Smoking/Nicotine If there was ever one thing that you could do to increase your overall health, decrease your risk of cardiovascular problems by about 39% the second you make the choice, it is to STOP SMOKING. Your body's most instant gratification is the second you stop smoking. We have all heard the studies, read the articles but it is true, smoking is extremely bad for your overall health, and moreover it is detrimental to your bone health. Nicotine, IN ANY FORM, kills bone cells, prevents your body from healing fractures, and significantly prolongs healing after surgery. In spine surgery specifically, it increases your risk of not healing your bones to create a fusion and increases your risk of having a revision surgery due to this up to 60%. I know it is hard. I know it feels impossible. But there are ways. Take control of your life. We are here to help you through it. And when you are ready, ask us and we can direct you to help if you desire. Use the START Plan to Quit Smoking (please visit the Helpguide.org website listed below for more information): S = Set a quit date. Choose a date within the next 2 weeks, so you have enough time to prepare without losing your motivation to quit. If you mainly smoke at work, quit on the weekend, so you have a few days to adjust to the change. T = Tell family, friends, and co-workers that you plan to quit. Let your friends and family in on your plan to quit smoking and tell them you need their support and encouragement to stop. Look for a quit amanda who wants to stop smoking as well. You can help each other get through the rough times. A = Anticipate and plan for the challenges you'll face while quitting. Most people who begin smoking again do so within the first 3 months. You can help yourself make it through by preparing ahead for common challenges, such as nicotine withdrawal and cigarette cravings. R = Remove cigarettes and other tobacco products from your home, car, and work. Throw away all your cigarettes (no emergency pack!), lighters, ashtrays, and matches. Wash your clothes and freshen up anything that smells like smoke. Shampoo your car, clean your drapes and carpet, and steam your furniture. T = Talk to your doctor about getting help to quit. Your doctor can prescribe medication to help with withdrawal and suggest other alternatives. If you can't see a doctor, you can get many products over the counter at your local pharmacy or grocery store, including the nicotine patch, nicotine lozenges, and nicotine gum. Resources for Quitting Smoking: <https://www.[place].gov/documents/[facility]/Quit_Tobacco_Resources_for_patients_313 480_7.pdf> Supplementation: Take recommended dosages of Vitamin D and Calcium to help fortify your bones and help them to heal. See your health maintenance packet for dosages and recommended levels. DVT/VTE prophylaxis: You will be given compression stockings from the hospital. Wear these daily for the first two weeks after surgery. You may take them off at night. You may be prescribed a medication to help thin your blood. Take this as directed. If you are not prescribed this medication, early and frequent ambulation has been shown to be the best prophylaxis to deep vein thrombosis and sequelae related to this event. Discharge Disposition: HOME SELF-CARE
[2022-01-31 07:48] VITALS: BP 142/79; PULSE 78; RESP 18; TEMP 98.7
[2022-01-31] MEDS ORDERED: LACTOBACILLUS ACIDOPH & BULGAR 1 EACH PACKET PO SCH (09:00)
[2022-01-31] MEDS ORDERED: FAMOTIDINE 20 MG TAB PO SCH (09:00)
[2022-01-31] MEDS ORDERED: ZINC SULFATE 220 MG CAP PO SCH (09:00)
[2022-01-31] MEDS ORDERED: hydroCHLOROthiazide 12.5 MG CAP PO SCH (09:00)
[2022-01-31 09:25] LABS: HCT 33.2 % (37.2-46.3); HGB 10.5 g/dL (12.0-15.0); MCH 21.9 pg (27.0-32.0); MCHC 31.6 g/dL (32.0-37.0); MCV 69.3 fL (80.0-97.0); Mean Platelet Volume 10.5 fL (9.5-12.2); NRBC Per 100 WBC 0 /100 WBCS (0.0-0.0); Platelet Count 257 X 10*3/uL (140-440); RBC 4.79 X 10*6/uL (4.10-5.20); WBC 14.38 X 10*3/uL (4.50-10.00)
[2022-01-31 09:38] LABS: African American GFR (CKD) 125.3 (60.0-200.0); Anion Gap 12.8 mmol/L (10.00-18.00); BUN/Creat Ratio 19.93 Ratio (12.00-20.00); Blood Urea Nitrogen 11.6 mg/dL (9.0-27.0); Calcium 8.7 mg/dL (8.7-10.3); Carbon Dioxide 23.4 mmol/L (20.0-27.5); Non-African American GFR(CKD) 108.1 (60.0-200.0); Potassium 3.6 mmol/L (3.5-5.5)
[2022-01-31] MEDS: ONDANSETRON 4 MG/2 ML VIAL IVP PRN (09:58)
--- NOTE | 2022-01-31 10:06 | CT ---
EXAMINATION TYPE: CT cervical spine wo con DATE OF EXAM: 01/31/2022 COMPARISON: X-ray dated 01/30/2022 HISTORY: S/P Cervical fusion C4-C6 CT DLP: 546.8 mGycm Automated exposure control for dose reduction was used. TECHNIQUE: CT scan of the cervical spine is obtained without contrast, axial images are obtained, sa gittal and coronal reformatted images are also reviewed. FINDINGS: Status post anterior spinal fixation from C4 down to C6 using a plate and 6 metallic screws. No evide nce of prosthesis break or displacement. C4-5 and C5-6 disc prosthesis is also noted. Acute postopera tive changes with prevertebral and retropharyngeal soft tissue thickening and fluid. Soft tissue emph ysema/air bubbles are seen in the neck more on the right side. Degenerative changes at C4-5, C5-6 and C6-7 levels with multilevel facet osteoarthropathy most eviden t involving the left C4-5 facet. No definite vertebral body collapse or acute displaced fracture. No significant anterolisthesis or retrolisthesis. Right C5-6 neural foraminal stenosis. Slightly heterog eneous thyroid gland. Scattered subcentimeter bilateral cervical lymph nodes, nonspecific. Minimal ar terial atherosclerotic calcifications. IMPRESSION: Acute postoperative changes as detailed above.
[2022-01-31 10:39] LABS: Basophils # (A) 0.03 X 10*3/uL (0.00-0.10); Basophils % (A) 0.2 %; Eosinophils # (A) 0 X 10*3/uL (0.04-0.35); Eosinophils % (A) 0 %; Immature Grans, Automated 0.5 %; Lymphocytes # (A) 1.94 X 10*3/uL (0.90-5.00); Lymphocytes % (A) 13.5 %; Monocytes # (A) 1.32 X 10*3/uL (0.20-1.00); Monocytes % (A) 9.2 %; Neutrophils # (A) 11.02 X 10*3/uL (1.80-7.70); Neutrophils % (A) 76.6 %
[2022-01-31 11:28] LABS: Glucose,Whole Blood 168 mg/dL (75-99)
[2022-01-31] MEDS ORDERED: ONDANSETRON 4 MG TAB PO PRN (12:42)
--- NOTE | 2022-01-31 15:12 | P.PN ---
Subjective Progress Note Date: 01/31/22 (delayed charting seen at 1005) Principal diagnosis: neck pain Patient is a 51-year-old woman with a history of hypertension, diabetes, ALLERGIC rhinitis presented for elective C4 through 6 laminectomy and spinal fusion. Patient seen and examined at bedside. She states her pain is fairly well controlled. Denies any nausea or vomiting. Has been up and walking around. She states that her hemoglobin A1c prior to surgery was 6.9. She does not check her blood sugars on a daily basis at home. She also states that she has a history of thalassemia her typical hemoglobin is between 9-11. General: non toxic, no distress, appears at stated age Derm: warm, dry Head: atraumatic, normocephalic, symmetric soft cervical collar in place Eyes: EOMI, no lid lag, anicteric sclera Mouth: no lip lesion, mucus membranes moist Cardiovascular: S1S2 reg, no murmur, positive posterior tibial pulse bilateral, Lungs: CTA bilateral, no rhonchi, no rales , no accessory muscle use Abdominal: soft, nontender to palpation, no guarding, no appreciable organomegaly Ext: no gross muscle atrophy, no edema, no contractures Neuro: CN II-XI grossly intact, no focal neuro deficits Psych: Alert, oriented, appropriate affect Assessment/plan: Chronic conditions hypertension Diabetes mellitus type 2, [id number], A1C 6.9 per patient Chronic rhinitis Thalassemia -Home medication reconciliation addressed to resume all prior home meds. She will continue to check her blood sugars and follow up with her primary care physician as indicated for her diabetes. Chronic anemia -Appears at baseline and this is secondary to thalassemia -Follow CBC -No indication for transfusion her oral iron therapy at this time Status post cervical spinal fusion -Management per orthopedic surgery team. Medication reconciliation addressed. Patient medically optimized for discharge. Thank you for allowing us to paticipate in the care of this pleasant patient. Objective - Vital Signs Vital signs: Vital Signs Temp 98.7 F 01/31/22 07:48 Pulse 78 01/31/22 07:48 Resp 18 01/31/22 07:48 BP 142/79 01/31/22 07:48 Pulse Ox 98 01/31/22 07:48 FiO2 Intake & Output 01/30/22 01/31/22 01/31/22 18:59 06:59 18:59 Intake Total 1831 830 Output Total 175 9615 2400 Balance 0688 -1759 -2407 Weight 113.3 kg Intake: IV 1351 290 Lactated Ringers 1,000 ml 240 @ 20 mls/hr IV .Q24H [facility] Rx#:[id number] ceFAZolin 2 gm In Sodium 50 Chloride 0.9% 50 ml @ 100 mls/hr IVPB ONCE PRN Rx# :[id number] Oral 480 540 Output: Drainage 55 Anterior Neck 55 Urine 150 3500 2400 Estimated Blood Loss 25 Other: Voiding Method Indwelling Catheter Indwelling Catheter # Voids 1 1 # Bowel Movements 1 - Labs CBC & Chem 7: 01/31/22 04:41 01/31/22 04:41 Labs: Abnormal Lab Results - Last 24 Hours (Table) 01/30/22 01/30/22 01/31/22 Range/Units 16:32 21:53 04:41 WBC 14.38 H (4.50-10.00) X 10*3/uL Hgb 10.5 L (12.0-15.0) g/dL Hct 33.2 L (37.2-46.3) % MCV 69.3 L (80.0-97.0) fL MCH 21.9 L (27.0-32.0) pg MCHC 31.6 L (32.0-37.0) g/dL RDW 15.0 H (11.5-14.5) % Immature Gran # 0.07 H (0.00-0.04) X 10*3/uL Neutrophils # 11.02 H (1.80-7.70) X 10*3/uL Monocytes # 1.32 H (0.20-1.00) X 10*3/uL Eosinophils # 0 L (0.04-0.35) X 10*3/uL Glucose (70-110) mg/dL POC Glucose (mg/dL) 195 H 162 H (75-99) mg/dL Hemoglobin A1c (0.0-6.0) % 01/31/22 01/31/22 01/31/22 Range/Units 04:41 04:41 07:15 WBC (4.50-10.00) X 10*3/uL Hgb (12.0-15.0) g/dL Hct (37.2-46.3) % MCV (80.0-97.0) fL MCH (27.0-32.0) pg MCHC (32.0-37.0) g/dL RDW (11.5-14.5) % Immature Gran # (0.00-0.04) X 10*3/uL Neutrophils # (1.80-7.70) X 10*3/uL Monocytes # (0.20-1.00) X 10*3/uL Eosinophils # (0.04-0.35) X 10*3/uL Glucose 151 H (70-110) mg/dL POC Glucose (mg/dL) 186 H (75-99) mg/dL Hemoglobin A1c 7.3 H (0.0-6.0) % 01/31/22 Range/Units 11:26 WBC (4.50-10.00) X 10*3/uL Hgb (12.0-15.0) g/dL Hct (37.2-46.3) % MCV (80.0-97.0) fL MCH (27.0-32.0) pg MCHC (32.0-37.0) g/dL RDW (11.5-14.5) % Immature Gran # (0.00-0.04) X 10*3/uL Neutrophils # (1.80-7.70) X 10*3/uL Monocytes # (0.20-1.00) X 10*3/uL Eosinophils # (0.04-0.35) X 10*3/uL Glucose (70-110) mg/dL POC Glucose (mg/dL) 168 H (75-99) mg/dL Hemoglobin A1c (0.0-6.0) %
== END 2022-01-31 13:00 | disposition home health service (06) ==
LOC: OR 06:00 → 4SSUR 10:53 → OR 01-31 07:33 → 4SSUR 01-31 07:39
PROVIDERS: ADMIT Orthopaedic Surgery; ATTEND Orthopaedic Surgery
DX: M47.22 Other spondylosis with radiculopathy, cervical region (principal); M48.02 Spinal stenosis, cervical region; G95.89 Other specified diseases of spinal cord; I10 Essential (primary) hypertension; F41.9 Anxiety disorder, unspecified; E11.9 Type 2 diabetes mellitus without complications; J30.9 Allergic rhinitis, unspecified; J45.909 Unspecified asthma, uncomplicated; K21.9 Gastro-esophageal reflux disease without esophagitis; M19.90 Unspecified osteoarthritis, unspecified site; D56.9 Thalassemia, unspecified; I83.90 Asymptomatic varicose veins of unspecified lower extremity; Z87.442 Personal history of urinary calculi; Z98.891 History of uterine scar from previous surgery; Z98.51 Tubal ligation status; Z98.890 Other specified postprocedural states; F32.A Depression, unspecified; Z87.891 Personal history of nicotine dependence; Z80.9 Family history of malignant neoplasm, unspecified; Z79.84 Long term (current) use of oral hypoglycemic drugs; Z79.899 Other long term (current) drug therapy
CPT/HCPCS: 81025; 86900; 86901; 80048; 85025; 86850; 83036; 72040; 72125; 36415; 22551; 22552; 22853 ×2; 22845; G0378; C1713; C1762; J2250; J1100; J0690 ×2; J2405 ×2; J3010; J1170 ×2; J0330; J2704; J2001